=== PATIENT | male | born 2000 | race Caucasian/White ===

== ENCOUNTER 2020-04-22 09:51 | Inpatient (IN) | payer MEDICAID ==
[2020-04-22] VITALS (14 sets, daily range): BP systolic 110–152; BP diastolic 67–93
[~2020-04-22] VITALS: Ht 182.9 cm; Wt 90.9 kg
[2020-04-22] MEDS ORDERED: ondansetron/PF 4mg/2ml inj IV ONE (10:30)
[2020-04-22] MEDS ORDERED: normal saline 1000ML IV soln IVB ONE (10:30)
[2020-04-22] MEDS ORDERED: ketorolac trometh. 30mg/ml inj. IV ONE (10:30)
[2020-04-22 10:55] LABS: CLARITY,URINE CLEAR (Clear); GLUCOSE, URINE NEGATIVE (Neg); KETONES,URINE >=80 mg/dl (Neg); LEUKOCYTE ESTERASE ,URINE NEGATIVE (Neg); NITRITES, URINE NEGATIVE (Neg); OCCULT BLOOD,URINE NEGATIVE (Neg); PROTEIN,URINE 100 mg/dl (Neg)
[2020-04-22 10:55] LABS: BASOPHILS % (AUTO) 0.1 % (0-1); EOSINOPHILS % (AUTO) 0 % (0-6); HEMOGLOBIN 15.9 g/dl (14.0-17.9); LYMPHOCYTES # (AUTO) 0.3 X10'3 (1.1-4.8); LYMPHOCYTES % (AUTO) 3.3 % (21-51); MEAN CORPUSCULAR HEMOGLOBIN 31.3 PG (27.0-31.0); MEAN CORPUSCULAR HGB CONC 35.2 g/dL (33.0-36.5); MEAN CORPUSCULAR VOLUME 88.9 FL (78-98); MEAN PLATELET VOLUME 7.7 FL (7.4-10.4); MONOCYTES # (AUTO) 0.1 X10'3 (0-0.9); MONOCYTES % (AUTO) 1.4 % (2-12); NEUTROPHILS # (AUTO) 8.7 X10'3 (1.8-7.7); NEUTROPHILS % (AUTO) 95.2 % (42-75); PLATELET COUNT 253 X10'3 (140-440); RED BLOOD COUNT 5.07 X10'6 (4.70-6.10); RED CELL DISTRIBUTION WIDTH 12.7 % (11.5-14.5); WHITE BLOOD COUNT 9.1 X10'3 (4.5-11.0)
[2020-04-22 10:56] LABS: COLOR,URINE DARK YELLOW (Yellow); UA COLLECTION TYPE URINAL
[2020-04-22 11:01] LABS: RBC,URINE NONE SEEN /HPF (0-2)
[2020-04-22 11:02] LABS: BACTERIA,URINE NONE SEEN /HPF (Neg); MUCUS STRANDS FEW /LPF (Neg); SQUAMOUS EPITHELIAL CELL,UR FEW /LPF (FEW)
[2020-04-22 11:11] LABS: ALANINE AMINOTRANSFERASE 19 U/L (12-78); ALBUMIN/GLOBULIN RATIO 1.1 (1.1-1.5); ALKALINE PHOSPHATASE 180 IU/L (46-116); ANION GAP 14 (8-16); ASPARTATE AMINO TRANSFERASE 17 U/L (10-37); BILIRUBIN,TOTAL 3.2 MG/DL (0.1-1.0); BLOOD UREA NITROGEN 17 MG/DL (7-18); BUN/CREATININE RATIO 13.2 (5.4-32.0); CALCIUM 9.1 MG/DL (8.5-10.1); CHLORIDE 98 MMOL/L (99-107); CREATININE 1.29 MG/DL (0.60-1.10); GLUCOSE 117 MG/DL (70-104); LIPASE 73 U/L (73-393); POTASSIUM 3.6 MMOL/L (3.5-5.1); SODIUM 135 MMOL/L (135-145); TOTAL CARBON DIOXIDE 22.9 MMOL/L (24-32); TOTAL PROTEIN 7.6 G/DL (6.4-8.2); eGFR 70 ML/MIN
[2020-04-22] MEDS ORDERED: piperacillin/tazo 4.5gm/100ml 100 ML IV ONE (11:15)
--- NOTE | 2020-04-22 11:20 | NUR ---
pt amaury Parikh [phone] pt Austin Clayton [phone] for any updates or ride hoe after procedure
[2020-04-22] MEDS ORDERED: ondansetron/PF 4mg/2ml inj IV PRN ×2 (12:15→14:25)
[2020-04-22] MEDS ORDERED: morphine 2 MG/ML inj. syringe IV PRN ×3 (12:15→14:25)
[2020-04-22] MEDS ORDERED: mag hydrox/Alum hydrox/simeth 30ml oral suspension PO PRN (12:15)
[2020-04-22] MEDS ORDERED: magnesium hydroxide 30ml (MOM) UD suspension PO PRN (12:15)
[2020-04-22] MEDS ORDERED: ONDA4TAB6 PO (12:30)
[2020-04-22] MEDS: normal saline 1000ml 1,000 ML IV SCH ×2 (13:07→18:50)
--- NOTE | 2020-04-22 13:15 | NUR ---
Break relief for Primary Nurse. Pt's home medication sent to the pharmacy to be held until discharge. Pt is awaiting admission bed assignment/OR for surgery.
[2020-04-22] MEDS ORDERED: ringers solution, lacted 1,000 ML IV ONE (14:23)
[2020-04-22] MEDS ORDERED: ringers solution, lacted 1,000 ML IV SCH (14:23)
[2020-04-22] MEDS ORDERED: labetalol 20mg/4ml (5mg/ml) syringe IV PRN (14:25)
[2020-04-22] MEDS ORDERED: fentaNYL/PF 50MCG/1 ML 2ML syringe IV PRN ×2 (14:25)
[2020-04-22] MEDS ORDERED: hydrALAZINE 20mg/ml inj. IV PRN (14:25)
[2020-04-22] MEDS ORDERED: morphine 4 MG/ML inj SYRINge IV PRN (14:25)
--- NOTE | 2020-04-22 15:42 | NUR ---
Called report to PAVEL Dolan in the recovery room. They are coming to get the pt now.
--- NOTE | 2020-04-22 15:51 | NUR ---
Pt tranported to the OR via gurney with OR staff.
[2020-04-22] MEDS: piperacillin/tazo 4.5gm/100ml 100 ML IV SCH ×3 (16:00→23:35)
[2020-04-22] MEDS ORDERED: BUPIVAcaine/PF 2.5 mg/ml (0.25%) 30ml vial ONE (16:38)
[2020-04-22] MEDS ORDERED: LIDOcaine 2% (20mg/ml) 5ml vial ONE (16:39)
[2020-04-22] MEDS ORDERED: propofol inj 20 ML IV ONE (16:39)
[2020-04-22] MEDS ORDERED: fentaNYL/PF 50MCG/1 ML 2ML syringe ONE (16:39)
[2020-04-22] MEDS ORDERED: ondansetron/PF 4mg/2ml inj ONE (16:44)
[2020-04-22] MEDS ORDERED: rocuronium 10mg/ml inj IV ONE (16:44)
[2020-04-22] MEDS ORDERED: neostigmine methylsulfate 1 MG/ML 10ml vial ONE (16:48)
[2020-04-22] MEDS ORDERED: sevoflurane 250ml liquid IH ONE (16:48)
[2020-04-22] MEDS ORDERED: dexamethasone sod phosphate 10mg/ml inj ONE (16:48)
[2020-04-22] MEDS ORDERED: glycopyrrolate 0.2mg/ml inj ONE (16:48)
--- NOTE | 2020-04-22 18:18 | NUR ---
Received from OR via surgical bed, accompanied by Anesthesiologist Helena and report given by Anesthesiolgist. Pt writihing in pain, morphine to be given. Sats 98% on 10L all other VS stable. Lap sites x3 present with bandaids present CDI. SCDs pressent. 20G left forearm with LR at 100cc/hr. Will continue to monitor patient closely.
--- NOTE | 2020-04-22 19:08 | NUR ---
Report called to receiving nurse. Transferred via surgical bed to [facility]. Belongings sent with patient along with chart. Pt states pain remains tolerable at 2/10. Special Issues communicated to receiving nurse PAVEL Burns during report when called earlier. Post op VS stable. BLL, call light within reach.
--- NOTE | 2020-04-22 21:22 | NUR ---
Patient in room [facility] 346. I have received report from PAVEL Cantu and had the opportunity to ask questions and assume patient care. Addendum: 04/22/20 at 2 by Anne Bryant RN Amended: Links added.
[2020-04-23] VITALS (13 sets, daily range): BP systolic 117–145; BP diastolic 55–82
[2020-04-23] MEDS ORDERED: piperacillin/tazo 4.5gm/100ml 100 ML IV SCH
[2020-04-23] MEDS: morphine 4 MG/ML inj SYRINge IV PRN ×5 (01:07→11:54)
[2020-04-23] MEDS: normal saline 1000ml 1,000 ML IV SCH ×3 (03:11→20:30)
--- NOTE | 2020-04-23 06:11 | NUR ---
Problems reprioritized. Patient report given, questions answered & plan of care reviewed with PAVEL Man. Addendum: 04/23/20 at 0611 by Anne Bryant RN Amended: Links added.
--- NOTE | 2020-04-23 06:36 | NUR ---
Patient in room [facility] 346. I have received report from PAVEL MILAN and had the opportunity to ask questions and assume patient care.
[2020-04-23 06:43] LABS: BASOPHILS % (AUTO) 0.1 % (0-1); EOSINOPHILS % (AUTO) 0 % (0-6); HEMATOCRIT 39.1 % (42.0-52.0); HEMOGLOBIN 13.6 g/dl (14.0-17.9); LYMPHOCYTES # (AUTO) 0.4 X10'3 (1.1-4.8); LYMPHOCYTES % (AUTO) 2.3 % (21-51); MEAN CORPUSCULAR HEMOGLOBIN 31.6 PG (27.0-31.0); MEAN CORPUSCULAR HGB CONC 34.9 g/dL (33.0-36.5); MEAN CORPUSCULAR VOLUME 90.6 FL (78-98); MEAN PLATELET VOLUME 8.9 FL (7.4-10.4); MONOCYTES # (AUTO) 1.3 X10'3 (0-0.9); MONOCYTES % (AUTO) 7.4 % (2-12); NEUTROPHILS % (AUTO) 90.2 % (42-75); PLATELET COUNT 237 X10'3 (140-440); RED BLOOD COUNT 4.32 X10'6 (4.70-6.10); RED CELL DISTRIBUTION WIDTH 12.9 % (11.5-14.5); WHITE BLOOD COUNT 17.7 X10'3 (4.5-11.0)
[2020-04-23] MEDS ORDERED: piperacillin/tazo 4.5gm/100ml 100 ML IV ONE (08:00)
--- NOTE | 2020-04-23 11:02 | NUR ---
Dr. Sorenson requested for patient's COVID-19 test results which was given at [facility]. Called to [facility] and patient's test was sent to [facility] and results are still pending. Dr. Sorenson notified.
[2020-04-23] MEDS: acetaminophen 325mg tablet PO PRN ×2 (14:42→20:30)
[2020-04-23] MEDS: piperacillin/tazo 4.5gm/100ml 100 ML IV SCH (16:09)
--- NOTE | 2020-04-23 18:46 | NUR ---
Patient in room [facility] 346. I have received report from PAVEL Man and had the opportunity to ask questions and assume patient care. Addendum: 04/23/20 at 1847 by Anne Bryant RN Amended: Links added.
--- NOTE | 2020-04-23 21:04 | NUR ---
pt walked 2x around unit Addendum: 04/23/20 at 2104 by Anne Bryant RN Amended: Links added.
--- NOTE | 2020-04-23 21:42 | NUR ---
Problems reprioritized. Patient report given, questions answered & plan of care reviewed with PrudencePAVEL. Addendum: 04/23/20 at 2142 by Anne Bryant RN Amended: Links added.
[2020-04-24] MEDS: piperacillin/tazo 4.5gm/100ml 100 ML IV SCH ×3 (00:14→17:48)
[2020-04-24 00:52] VITALS: BP 114/62
[2020-04-24 05:01] LABS: BASOPHILS % (AUTO) 0.3 % (0-1); EOSINOPHILS # (AUTO) 0.1 X10'3 (0-0.9); EOSINOPHILS % (AUTO) 1.1 % (0-6); HEMATOCRIT 36.9 % (42.0-52.0); LYMPHOCYTES # (AUTO) 0.8 X10'3 (1.1-4.8); LYMPHOCYTES % (AUTO) 8.2 % (21-51); MEAN CORPUSCULAR HEMOGLOBIN 31.6 PG (27.0-31.0); MEAN CORPUSCULAR HGB CONC 35.1 g/dL (33.0-36.5); MEAN CORPUSCULAR VOLUME 90.1 FL (78-98); MEAN PLATELET VOLUME 8.3 FL (7.4-10.4); MONOCYTES % (AUTO) 9.4 % (2-12); NEUTROPHILS # (AUTO) 8.4 X10'3 (1.8-7.7); PLATELET COUNT 233 X10'3 (140-440); RED CELL DISTRIBUTION WIDTH 12.7 % (11.5-14.5); WHITE BLOOD COUNT 10.3 X10'3 (4.5-11.0)
[2020-04-24] MEDS: normal saline 1000ml 1,000 ML IV SCH (05:19)
[2020-04-24 05:21] LABS: ANION GAP 7 (8-16); BLOOD UREA NITROGEN 12 MG/DL (7-18); CALCIUM 8.4 MG/DL (8.5-10.1); CHLORIDE 103 MMOL/L (99-107); CREATININE 0.92 MG/DL (0.60-1.10); GLUCOSE 106 MG/DL (70-104); POTASSIUM 3.7 MMOL/L (3.5-5.1); SODIUM 137 MMOL/L (135-145); TOTAL CARBON DIOXIDE 27.1 MMOL/L (24-32); eGFR > 90 ML/MIN
[2020-04-24] MEDS: acetaminophen 325mg tablet PO PRN (06:28)
--- NOTE | 2020-04-24 06:31 | NUR ---
Problems reprioritized. Patient report given, questions answered & plan of care reviewed with Nell ZHAO.
[2020-04-24 07:00] VITALS: BP 131/81
--- NOTE | 2020-04-24 07:05 | NUR ---
Patient in room [facility] 346. I have received report from PAVEL CHAVEZ and had the opportunity to ask questions and assume patient care.
[2020-04-24 11:00] VITALS: BP 124/72
[2020-04-24 18:00] VITALS: BP 130/71
--- NOTE | 2020-04-24 18:46 | NUR ---
Patient in room [facility]I 346. I have received report from Nell ZHAO and had the opportunity to ask questions and assume patient care. patient is eating dinner and denies any discomfort.
--- NOTE | 2020-04-24 18:59 | NUR ---
Problems reprioritized. Patient report given, questions answered & plan of care reviewed with PAVEL CHAVEZ.
[2020-04-24] MEDS ORDERED: HYDROcodone/acetaminophen 5mg/325mg tablet PO PRN (19:00)
[2020-04-24] MEDS ORDERED: acetaminophen 325mg tablet PO PRN (19:00)
--- NOTE | 2020-04-24 19:14 | NUR ---
Patient ate food from home. Addendum: 04/24/20 at 1914 by Ivelisse Baltazar RN Amended: Links added.
[2020-04-25] VITALS: BP 116/68
[2020-04-25] MEDS: piperacillin/tazo 4.5gm/100ml 100 ML IV SCH ×2 (00:14→09:43)
[2020-04-25] MEDS: normal saline 1000ml 1,000 ML IV SCH ×2 (00:18→11:07)
[2020-04-25 05:30] LABS: BASOPHILS # (AUTO) 0.1 X10'3 (0-0.2); BASOPHILS % (AUTO) 0.6 % (0-1); EOSINOPHILS # (AUTO) 0.3 X10'3 (0-0.9); EOSINOPHILS % (AUTO) 3.4 % (0-6); HEMATOCRIT 38.6 % (42.0-52.0); HEMOGLOBIN 13.5 g/dl (14.0-17.9); LYMPHOCYTES # (AUTO) 0.9 X10'3 (1.1-4.8); LYMPHOCYTES % (AUTO) 11.4 % (21-51); MEAN CORPUSCULAR HEMOGLOBIN 31.3 PG (27.0-31.0); MEAN CORPUSCULAR HGB CONC 34.9 g/dL (33.0-36.5); MEAN CORPUSCULAR VOLUME 89.6 FL (78-98); MEAN PLATELET VOLUME 7.8 FL (7.4-10.4); MONOCYTES # (AUTO) 1.1 X10'3 (0-0.9); MONOCYTES % (AUTO) 13.3 % (2-12); NEUTROPHILS # (AUTO) 5.9 X10'3 (1.8-7.7); NEUTROPHILS % (AUTO) 71.3 % (42-75); PLATELET COUNT 267 X10'3 (140-440); RED BLOOD COUNT 4.31 X10'6 (4.70-6.10); RED CELL DISTRIBUTION WIDTH 12.4 % (11.5-14.5); WHITE BLOOD COUNT 8.3 X10'3 (4.5-11.0)
--- NOTE | 2020-04-25 06:30 | NUR ---
Patient in room [facility] 346. I have received report from PAVEL CHAVEZ and had the opportunity to ask questions and assume patient care.
--- NOTE | 2020-04-25 06:35 | NUR ---
Problems reprioritized. Patient report given, questions answered & plan of care reviewed with SUBHA ZHAO.
[2020-04-25 07:00] VITALS: BP 114/69
[2020-04-25] MEDS ORDERED: AMOX-422 PO (10:19)
--- NOTE | 2020-04-25 16:00 | NUR ---
PATIENT STABLE AND APPROPRIATE FOR DISCHARGE, IV TAKEN OUT, EDUCATION GIVEN, MEDS SENT PREFERRED PHARMACY, MEDS THAT WERE STORED IN OUR PHARMACY WERE RETURNED TO PATIENT, ALL BELONGINGS SENT WITH PATIENT, PATIENT TAKEN TO LOBBY IN WHEELCHAIR TO AN AWAITING CAR WHERE FRIEND WILL TAKE PATIENT HOME
[2020-04-25] MEDS ORDERED: lactobacillus rhamnosus 10,000 MMU CELLS/CAPSULE PO SCH (20:00)
== END 2020-04-25 15:58 | disposition home or self-care (01) | DRG 233 ==
LOC: ER 09:51 → EDSEX 09:51 → OBSVTOIN 12:14 → UNDOADMOB 12:14 → INTOOBSV 12:14 → ED HOLD 12:14 → OBSVTOIN 14:57 → ED HOLD 19:05 → SUR 3N 19:05
PROVIDERS: ADMIT Family Medicine; ATTEND Family Medicine
PROC: 0DTJ4ZZ Resection of Appendix, Percutaneous Endoscopic Approach (ICD-10-PCS; principal; 2020-04-23)
DX: K35.32 Acute appendicitis with perforation, localized peritonitis, and gangrene, without abscess (principal); N17.0 Acute kidney failure with tubular necrosis; D72.829 Elevated white blood cell count, unspecified
CPT/HCPCS: 36415; 74176; 80048; 80053; 81001; 83690; 85025; 87081; 87088; 96374; 99285; A4215; A4618; A7000; G0378; J1100; J1885; J2001; J2270; J2405; J2543; J2704; J2710; J3010; J3490; J7030; J7120

== ENCOUNTER 2020-05-05 16:28 | Inpatient (IN) | payer OTHER, MEDICAID ==
[~2020-05-05] VITALS: Ht 182.9 cm; Wt 80.9 kg
[~2020-05-05 16:28] MED LIST: AMOX-422 PO; ONDA4TAB6 PO
[2020-05-05] MEDS ORDERED: normal saline 1000ml 1,000 ML IV ONE (17:10)
[2020-05-05] MEDS ORDERED: iohexol 300mg/ml 100ml inj. ONE (17:22)
[2020-05-05 18:04] LABS: BASOPHILS % (AUTO) 0.3 % (0-1); EOSINOPHILS # (AUTO) 0.1 X10'3 (0-0.9); EOSINOPHILS % (AUTO) 0.6 % (0-6); HEMATOCRIT 36.1 % (42.0-52.0); HEMOGLOBIN 12.6 g/dl (14.0-17.9); LYMPHOCYTES # (AUTO) 1.5 X10'3 (1.1-4.8); LYMPHOCYTES % (AUTO) 9.3 % (21-51); MEAN CORPUSCULAR HEMOGLOBIN 31.4 PG (27.0-31.0); MEAN CORPUSCULAR HGB CONC 34.8 g/dL (33.0-36.5); MEAN CORPUSCULAR VOLUME 90.4 FL (78-98); MEAN PLATELET VOLUME 8.1 FL (7.4-10.4); MONOCYTES # (AUTO) 1.3 X10'3 (0-0.9); MONOCYTES % (AUTO) 8.2 % (2-12); NEUTROPHILS # (AUTO) 13.3 X10'3 (1.8-7.7); NEUTROPHILS % (AUTO) 81.6 % (42-75); PLATELET COUNT 480 X10'3 (140-440); RED BLOOD COUNT 3.99 X10'6 (4.70-6.10); RED CELL DISTRIBUTION WIDTH 12.3 % (11.5-14.5); WHITE BLOOD COUNT 16.2 X10'3 (4.5-11.0)
[2020-05-05 18:14] LABS: PARTIAL THROMBOPLASTIN TIME 34 SECONDS (22-32)
[2020-05-05 18:17] LABS: ALANINE AMINOTRANSFERASE 16 U/L (12-78); ALBUMIN/GLOBULIN RATIO 0.8 (1.1-1.5); ALKALINE PHOSPHATASE 90 IU/L (46-116); ANION GAP 8 (8-16); ASPARTATE AMINO TRANSFERASE 16 U/L (10-37); BLOOD UREA NITROGEN 9 MG/DL (7-18); BUN/CREATININE RATIO 9.6 (5.4-32.0); CALCIUM 8.3 MG/DL (8.5-10.1); CHLORIDE 100 MMOL/L (99-107); CREATININE 0.94 MG/DL (0.60-1.10); GLUCOSE 97 MG/DL (70-104); SODIUM 136 MMOL/L (135-145); TOTAL CARBON DIOXIDE 28.5 MMOL/L (24-32); eGFR > 90 ML/MIN
[2020-05-05] MEDS ORDERED: potassium Cl 20 mEq SR tablet PO PRN ×2 (19:10)
[2020-05-05] MEDS ORDERED: ondansetron/PF 4mg/2ml inj IV PRN (19:10)
[2020-05-05] MEDS ORDERED: morphine 2 MG/ML inj. syringe IV PRN ×2 (19:10)
[2020-05-05] MEDS ORDERED: potassium CL 10mEq/100ml bag 100 ML IV PRN ×2 (19:10)
[2020-05-05] MEDS ORDERED: magnesium hydroxide 30ml (MOM) UD suspension PO PRN (19:10)
[2020-05-05] MEDS ORDERED: acetaminophen 325mg tablet PO PRN (19:10)
[2020-05-05] MEDS ORDERED: mag hydrox/Alum hydrox/simeth 30ml oral suspension PO PRN (19:10)
[2020-05-05] MEDS ORDERED: metroNIDAZOLE 500mg tablet PO ONE (19:40)
[2020-05-05] MEDS ORDERED: ciprofloxacin 250mg tablet PO ONE (19:40)
[2020-05-05] MEDS: K and/or MAG REPLACEMENT MC SCH (20:00)
--- NOTE | 2020-05-05 21:18 | NUR ---
SBAR TO CARLA ZHAO, BELONGINGS LIST, PROFESSOR OF APOLOGETICS,PHONE,GLASSESS,SHOES,EUFEMIA PEREZ,GREGOR
[2020-05-05 21:30] VITALS: BP 113/56
--- NOTE | 2020-05-05 21:30 | NUR ---
Received report from Richard ZHAO in the ER. Patient arrived at 2130 riding in a wheelchair, saline locked, room air, a/o, vss, no signs of distress will continue to monitor
[2020-05-05] MEDS: normal saline 1000ml 1,000 ML IV SCH (21:33)
[2020-05-05] MEDS: ciprofloxacin lact 400MG/200ML 200 ML IV SCH (21:39)
[2020-05-05] MEDS ORDERED: diatrozoate meglu/diatrozoate sod (37% iodine) 120ML oral solution PO ONE (22:00)
[2020-05-06] VITALS (14 sets, daily range): BP systolic 83–110; BP diastolic 37–65
[2020-05-06] MEDS: metroNIDAZOLE-Flagyl 500mg/NS 100 ML IV SCH ×3 (05:35→22:39)
[2020-05-06 06:00] LABS: BASOPHILS % (AUTO) 0.3 % (0-1); EOSINOPHILS # (AUTO) 0.1 X10'3 (0-0.9); EOSINOPHILS % (AUTO) 0.6 % (0-6); HEMATOCRIT 36.8 % (42.0-52.0); HEMOGLOBIN 12.6 g/dl (14.0-17.9); LYMPHOCYTES # (AUTO) 1.3 X10'3 (1.1-4.8); LYMPHOCYTES % (AUTO) 7.8 % (21-51); MEAN CORPUSCULAR HEMOGLOBIN 30.6 PG (27.0-31.0); MEAN CORPUSCULAR HGB CONC 34.1 g/dL (33.0-36.5); MEAN CORPUSCULAR VOLUME 89.7 FL (78-98); MONOCYTES # (AUTO) 1.5 X10'3 (0-0.9); MONOCYTES % (AUTO) 9.1 % (2-12); NEUTROPHILS # (AUTO) 13.3 X10'3 (1.8-7.7); NEUTROPHILS % (AUTO) 82.2 % (42-75); PLATELET COUNT 465 X10'3 (140-440); RED BLOOD COUNT 4.11 X10'6 (4.70-6.10); RED CELL DISTRIBUTION WIDTH 12.5 % (11.5-14.5); WHITE BLOOD COUNT 16.1 X10'3 (4.5-11.0)
[2020-05-06 06:14] LABS: ALANINE AMINOTRANSFERASE 17 U/L (12-78); ALBUMIN 2.9 G/DL (3.4-5.0); ALBUMIN/GLOBULIN RATIO 0.7 (1.1-1.5); ALKALINE PHOSPHATASE 89 IU/L (46-116); ANION GAP 8 (8-16); ASPARTATE AMINO TRANSFERASE 11 U/L (10-37); BILIRUBIN,TOTAL 1.2 MG/DL (0.1-1.0); BLOOD UREA NITROGEN 6 MG/DL (7-18); BUN/CREATININE RATIO 6.3 (5.4-32.0); CALCIUM 8.7 MG/DL (8.5-10.1); CHLORIDE 103 MMOL/L (99-107); CREATININE 0.95 MG/DL (0.60-1.10); GLUCOSE 103 MG/DL (70-104); POTASSIUM 4.5 MMOL/L (3.5-5.1); SODIUM 140 MMOL/L (135-145); TOTAL CARBON DIOXIDE 28.9 MMOL/L (24-32); TOTAL PROTEIN 6.9 G/DL (6.4-8.2); eGFR > 90 ML/MIN
--- NOTE | 2020-05-06 06:21 | NUR ---
Problems reprioritized. Patient report given, questions answered & plan of care reviewed with Dahiana ZHAO.
--- NOTE | 2020-05-06 06:53 | NUR ---
Patient in room [facility] 346. I have received report from Jimena ZHAO and had the opportunity to ask questions and assume patient care.
[2020-05-06] MEDS ORDERED: AMOX-580 PO (07:37)
[2020-05-06] MEDS: K and/or MAG REPLACEMENT MC SCH ×2 (08:00→20:00)
[2020-05-06] MEDS: normal saline 1000ml 1,000 ML IV SCH ×3 (09:04→20:34)
[2020-05-06] MEDS: ciprofloxacin lact 400MG/200ML 200 ML IV SCH ×2 (09:05→20:34)
[2020-05-06] MEDS ORDERED: fentaNYL/PF 50MCG/1 ML 2ML syringe ONE (09:34)
--- NOTE | 2020-05-06 18:51 | NUR ---
Problems reprioritized. Patient report given, questions answered & plan of care reviewed with Cristina ZHAO.
[2020-05-06] MEDS: lactobacillus rhamnosus 10,000 MMU CELLS/CAPSULE PO SCH (20:34)
[2020-05-07] VITALS: BP 106/60
[2020-05-07 04:00] VITALS: BP 107/60
[2020-05-07 04:57] LABS: BASOPHILS # (AUTO) 0.1 X10'3 (0-0.2); BASOPHILS % (AUTO) 0.7 % (0-1); EOSINOPHILS # (AUTO) 0.2 X10'3 (0-0.9); EOSINOPHILS % (AUTO) 2.4 % (0-6); HEMATOCRIT 36.4 % (42.0-52.0); HEMOGLOBIN 12.5 g/dl (14.0-17.9); LYMPHOCYTES # (AUTO) 1.3 X10'3 (1.1-4.8); LYMPHOCYTES % (AUTO) 17.2 % (21-51); MEAN CORPUSCULAR HEMOGLOBIN 30.9 PG (27.0-31.0); MEAN CORPUSCULAR HGB CONC 34.3 g/dL (33.0-36.5); MEAN CORPUSCULAR VOLUME 90.1 FL (78-98); MEAN PLATELET VOLUME 8.7 FL (7.4-10.4); MONOCYTES # (AUTO) 0.8 X10'3 (0-0.9); MONOCYTES % (AUTO) 10.3 % (2-12); NEUTROPHILS # (AUTO) 5.4 X10'3 (1.8-7.7); NEUTROPHILS % (AUTO) 69.4 % (42-75); PLATELET COUNT 479 X10'3 (140-440); RED BLOOD COUNT 4.04 X10'6 (4.70-6.10); RED CELL DISTRIBUTION WIDTH 12.3 % (11.5-14.5); WHITE BLOOD COUNT 7.8 X10'3 (4.5-11.0)
[2020-05-07 05:14] LABS: ALANINE AMINOTRANSFERASE 14 U/L (12-78); ALBUMIN 2.8 G/DL (3.4-5.0); ALBUMIN/GLOBULIN RATIO 0.7 (1.1-1.5); ALKALINE PHOSPHATASE 87 IU/L (46-116); ANION GAP 6 (8-16); ASPARTATE AMINO TRANSFERASE 14 U/L (10-37); BILIRUBIN,TOTAL 0.7 MG/DL (0.1-1.0); BLOOD UREA NITROGEN 7 MG/DL (7-18); BUN/CREATININE RATIO 6.9 (5.4-32.0); CALCIUM 8.7 MG/DL (8.5-10.1); CHLORIDE 106 MMOL/L (99-107); CREATININE 1.01 MG/DL (0.60-1.10); GLUCOSE 110 MG/DL (70-104); POTASSIUM 4.1 MMOL/L (3.5-5.1); SODIUM 143 MMOL/L (135-145); TOTAL CARBON DIOXIDE 31.2 MMOL/L (24-32); TOTAL PROTEIN 6.7 G/DL (6.4-8.2); eGFR > 90 ML/MIN
[2020-05-07] MEDS: metroNIDAZOLE-Flagyl 500mg/NS 100 ML IV SCH (06:02)
--- NOTE | 2020-05-07 06:56 | NUR ---
Patient in room [facility] 346. I have received report from rCistina ZHAO and had the opportunity to ask questions and assume patient care.
[2020-05-07 08:00] VITALS: BP 97/50
[2020-05-07] MEDS: K and/or MAG REPLACEMENT MC SCH (08:00)
[2020-05-07] MEDS: lactobacillus rhamnosus 10,000 MMU CELLS/CAPSULE PO SCH (08:01)
[2020-05-07] MEDS: ciprofloxacin lact 400MG/200ML 200 ML IV SCH (08:01)
[2020-05-07 11:00] VITALS: BP 112/64
--- NOTE | 2020-05-07 11:25 | NUR ---
Dr. Cabrera rounded and stated pt is cleared by him to be discharged home by hospitalist after cultures are reviewed.
[2020-05-07] MEDS: normal saline 1000ml 1,000 ML IV SCH (11:35)
--- NOTE | 2020-05-07 14:31 | NUR ---
PAGER ID: [phone] MESSAGE: Rustam Gutierrez [id number]- Pt was DC by Dr Cabrera, he would like you to see pt and DC him home please. Thank you . Dahaina Kent
[2020-05-07] MEDS ORDERED: METR500T PO (14:55)
[2020-05-07] MEDS ORDERED: CIPR-230 PO (14:55)
[2020-05-07] MEDS ORDERED: metroNIDAZOLE 500mg tablet PO SCH (16:00)
--- NOTE | 2020-05-07 17:30 | NUR ---
Pt DC to home with mom. Pt is A & O, stable and in no apparent distress. Pt is going home with his abscess DARIUS drain per Dr Cabrera's orders. Pt was taught how to drain and was able to demonstrate how to drain it. Pt's DARIUS had a few blood clots and was flushed oer 's orders before DC. Pt states understanding of all DC orders and verbalizes understanding of the importance of following up with Dr Hernandez and PCP with in this week. (aDvid). Dr Cabrera will arrange for Pt's DARIUS removal. Pt packed all belongings and was wheeled out the the front where his mom picked him up.
== END 2020-05-07 17:24 | disposition home or self-care (01) | DRG 863 ==
LOC: ER 16:28 → ED HOLD 19:07 → SUR 3N 21:36
PROVIDERS: ADMIT Internal Medicine; ATTEND Internal Medicine
PROC: BW211ZZ Computerized Tomography (CT Scan) of Abdomen and Pelvis using Low Osmolar Contrast (ICD-10-PCS; 2020-05-05)
PROC: 0W9J30Z Drainage of Pelvic Cavity with Drainage Device, Percutaneous Approach (ICD-10-PCS; principal; 2020-05-06)
DX: T81.43XA Infection following a procedure, organ and space surgical site, initial encounter (principal); Y83.8 Other surgical procedures as the cause of abnormal reaction of the patient, or of later complication, without mention of misadventure at the time of the procedure; Z90.49 Acquired absence of other specified parts of digestive tract; Y92.89 Other specified places as the place of occurrence of the external cause; Z79.899 Other long term (current) drug therapy
CPT/HCPCS: 36415; 49406; 71045; 74177; 80053; 85025; 85610; 85730; 87070; 87077; 87081; 87186; 93005; 96360; 99285; G0378; J0744; J3010; J3490; J7030; Q9963; Q9967

== ENCOUNTER 2023-03-30 08:29 | Emergency (ER) | payer OTHER, MEDICAID ==
[~2023-03-30] VITALS: Ht 182.9 cm; Wt 94.2 kg
[~2023-03-30 08:29] MED LIST changes: -AMOX-422 PO; +AMOX-580 PO; +METR500T PO; -ONDA4TAB6 PO
[2023-03-30 08:53] LABS: CLARITY,URINE CLEAR (Clear); COLOR,URINE YELLOW (Yellow); GLUCOSE, URINE NEGATIVE (Neg); KETONES,URINE >=80 mg/dl (Neg); LEUKOCYTE ESTERASE ,URINE NEGATIVE (Neg); NITRITES, URINE NEGATIVE (Neg); OCCULT BLOOD,URINE TRACE-INTACT (Neg); PROTEIN,URINE 30 mg/dl (Neg); UROBILINOGEN,URINE 0.2 E.U/dL (0.2-1.0)
[2023-03-30 08:55] LABS: UA COLLECTION TYPE CLN CATCH MIDSTREAM
[2023-03-30 08:57] LABS: BASOPHILS % (AUTO) 0.4 % (0-1); EOSINOPHILS # (AUTO) 0.1 X10'3 (0-0.9); EOSINOPHILS % (AUTO) 0.5 % (0-6); HEMATOCRIT 44.4 % (42.0-52.0); HEMOGLOBIN 15.3 g/dl (14.0-17.9); LYMPHOCYTES # (AUTO) 0.7 X10'3 (1.1-4.8); LYMPHOCYTES % (AUTO) 5.2 % (21-51); MEAN CORPUSCULAR HEMOGLOBIN 31.2 PG (27.0-31.0); MEAN CORPUSCULAR HGB CONC 34.4 g/dL (33.0-36.5); MEAN CORPUSCULAR VOLUME 90.5 FL (78-98); MEAN PLATELET VOLUME 8.3 FL (7.4-10.4); MONOCYTES # (AUTO) 1.1 X10'3 (0-0.9); MONOCYTES % (AUTO) 8.5 % (2-12); NEUTROPHILS # (AUTO) 11.5 X10'3 (1.8-7.7); NEUTROPHILS % (AUTO) 85.4 % (42-75); PLATELET COUNT 263 X10'3 (140-440); RED CELL DISTRIBUTION WIDTH 13.3 % (11.5-14.5); WHITE BLOOD COUNT 13.5 X10'3 (4.5-11.0)
[2023-03-30 08:59] LABS: BACTERIA,URINE FEW /HPF (Neg); MUCUS STRANDS MANY /LPF (Neg); RBC,URINE NONE SEEN /HPF (0-2); SQUAMOUS EPITHELIAL CELL,UR FEW /LPF (FEW)
[2023-03-30] MEDS ORDERED: normal saline 1000ml 1,000 ML IV ONE (09:05)
[2023-03-30] MEDS ORDERED: ondansetron/PF 4mg/2ml inj IV ONE (09:05)
[2023-03-30 09:16] LABS: ALANINE AMINOTRANSFERASE 21 U/L (12-78); ALBUMIN 4.2 G/DL (3.4-5.0); ALBUMIN/GLOBULIN RATIO 1.4 (1.1-1.5); ALKALINE PHOSPHATASE 83 IU/L (46-116); ANION GAP 10 (8-16); ASPARTATE AMINO TRANSFERASE 20 U/L (10-37); BILIRUBIN,TOTAL 1.5 MG/DL (0.1-1.0); BLOOD UREA NITROGEN 10 MG/DL (7-18); BUN/CREATININE RATIO 8.6 (10.0-20.0); CALCIUM 9.1 MG/DL (8.5-10.1); CHLORIDE 102 MMOL/L (99-107); CREATININE 1.16 MG/DL (0.60-1.10); GLUCOSE 100 MG/DL (70-104); LIPASE 72 U/L (73-393); POTASSIUM 3.6 MMOL/L (3.5-5.1); SODIUM 136 MMOL/L (135-145); TOTAL PROTEIN 7.3 G/DL (6.4-8.2); eGFR 77 ML/MIN
[2023-03-30] MEDS ORDERED: famotidine/PF 10 mg/ml inj IV ONE (09:30)
[2023-03-30] MEDS ORDERED: ONDA4TAB12 PO (09:51)
[2023-03-30 10:42] VITALS: BP 111/66
== END 2023-03-30 10:50 | disposition home or self-care (01) ==
LOC: ER 08:29
DX: R19.7 Diarrhea, unspecified (principal); R51.9 Headache, unspecified; R10.9 Unspecified abdominal pain; R13.10 Dysphagia, unspecified; Z98.890 Other specified postprocedural states
CPT/HCPCS: 36415; 80053; 81001; 83690; 85025; 87088; 96361; 96374; 96375; 99284; J2405; J3490; J7030

== ENCOUNTER 2023-05-23 17:24 | Emergency (ER) | payer OTHER, MEDICAID ==
[~2023-05-23] VITALS: Ht 182.9 cm; Wt 85.5 kg
[~2023-05-23 17:24] MED LIST changes: +ONDA4TAB12 PO
[2023-05-23 17:41] VITALS: BP 126/81
[2023-05-23] MEDS ORDERED: iohexol 300mg/ml 100ml inj. ONE (18:13)
== END 2023-05-23 20:55 | disposition home or self-care (01) ==
LOC: ER 17:24
DX: E04.1 Nontoxic single thyroid nodule (principal); Z98.890 Other specified postprocedural states
CPT/HCPCS: 70491; 99285; J3490; Q9967

== ENCOUNTER → 2024-03-01 | Outpatient (CLI) | payer OTHER, MEDICAID | END | disposition home or self-care (01) | LOC: RAD 12:56 | PROVIDERS: ATTEND Family Medicine | DX: M25.512 Pain in left shoulder (principal); R13.12 Dysphagia, oropharyngeal phase | CPT/HCPCS: 70360; 73030 ==

== ENCOUNTER → 2024-06-21 | Outpatient (CLI) | payer MEDICAID ==
[~2024-06-21] MED LIST changes: +ONDA-243 PO; -ONDA4TAB12 PO
== END | disposition home or self-care (01) ==
LOC: MRI 13:09
PROVIDERS: ATTEND Student in an Organized Health Care Education/Training Program
DX: M19.012 Primary osteoarthritis, left shoulder (principal); M25.412 Effusion, left shoulder; M75.82 Other shoulder lesions, left shoulder; M25.512 Pain in left shoulder
CPT/HCPCS: 73221